=== PATIENT | female | born 1965 | race Caucasian/White ===

== ENCOUNTER → 2016-09-17 | Outpatient (CLI) | payer OTHER ==
[~2016-09-17] VITALS: Ht 154.9 cm; Wt 127.0 kg
[~2016-09-17] MED LIST: LISI10TA3 PO; PROPOFOL 200 MG/20 ML AMP IV ONE
[2016-09-17 07:09] VITALS: BP 125/66; PULSE 96; RESP 20; TEMP 98.3; O2SAT 97
--- NOTE | 2016-09-17 08:02 | GIPROC ---
[facility] [address] [facility]. [facility], [id number] COLONOSCOPY PROCEDURE REPORT EXAM DATE: 09/17/2016 PATIENT NAME: Paola Campo MR #: [id number] BIRTHDATE: 1965 ENDOSCOPIST: Lucretia Erazo MD ORDER #: [id number] RHEOSTAT ASSEMBLER: Earl Randle and Ainsley Boyer STATUS: outpatient INDICATIONS: The patient is a 51 yr old female here for a colonoscopy due to Screening PROCEDURE PERFORMED: Total Colonoscopy MEDICATIONS: See Anesthesia Record ESTIMATED BLOOD LOSS: None CONSENT: The patient understands the risks and benefits of the procedure and understands that these risks include, but are not limited to: sedation, allergic reaction, infection, perforation and/or bleeding. Alternative means of evaluation and treatment include, among others: physical exam, x-rays, and/or surgical intervention. The patient elects to proceed with this endoscopic procedure. DESCRIPTION OF PROCEDURE: checked for proper function. Hand hygiene and appropriate measures for infection prevention was taken. After the risks, benefits and alternatives of the procedure were thoroughly explained, Informed consent was verified, confirmed and timeout was successfully executed by the treatment team. A digital exam was performed. The endoscope was introduced through the anus and advanced to the cecum, which was identified by the appendiceal orifice, tri-radiate valve, and ileocecal valve. The prep quality was good. The instrument was then slowly withdrawn as the colon was fully examined. There were no mucosal abnormalities noted with the cecum, ascending colon, transverse colon, descending colon, sigmoid, or rectum. The scope was then completely withdrawn from the patient and the procedure terminated. ADVERSE EVENTS: There were no complications. WITHDRAWL TIME: DEGREE OF DIFFICULTY: IMPRESSIONS: Normal Colon RECOMMENDATIONS: Repeat colon 10 years PATIENT CONDITION: Stable DISPOSITION: Home RECALL: Repeat colon 10 years Lucretia Erazo MD eSigned: Lucretia Erazo MD 09/17/2016 8:01 AM cc: Dr. Palacio PATIENT NAME: Paola Campo MR#: [id number]
[2016-09-17 08:12] VITALS: BP 131/82; PULSE 89; RESP 18; TEMP 98.6; O2SAT 96
--- NOTE | 2016-09-18 13:45 | EKG ---
Date Performed: 09/17/2016 Time Performed: 06:40:17 PTAGE: 51 years EKG: NORMAL Sinus rhythm , rate 93 NO PREVIOUS TRACING DOCTOR: Clem Koch Interpretating Date/Time 09/18/2016 13:41:50
== END ==
LOC: HEND 05:54
PROVIDERS: ATTEND Colon & Rectal Surgery
DX: Z12.11 Encounter for screening for malignant neoplasm of colon (principal); Z01.810 Encounter for preprocedural cardiovascular examination
CPT/HCPCS: 93005